=== PATIENT | female | born 1980 | race Caucasian/White ===

== ENCOUNTER 2019-05-08 18:31 | Emergency (ER) | payer OTHER ==
[~2019-05-08] VITALS: Ht 165.1 cm; Wt 81.6 kg
[2019-05-08 18:45] VITALS: BP 142/79
[2019-05-08] MEDS ORDERED: TETANUS-DIPTH-ACEL PERTUSSIS 0.5ML SYRG IM ONE (21:45)
== END 2019-05-08 22:14 | disposition home or self-care (01) ==
LOC: ER 18:39
DX: S31.154A Open bite of abdominal wall, left lower quadrant without penetration into peritoneal cavity, initial encounter (principal); S70.12XA Contusion of left thigh, initial encounter; W54.0XXA Bitten by dog, initial encounter; Y93.89 Activity, other specified; Y92.89 Other specified places as the place of occurrence of the external cause; Y99.8 Other external cause status
CPT/HCPCS: 90471; 90715